=== PATIENT | male | born 1930 | race Caucasian/White ===

== ENCOUNTER 2016-11-26 17:00 | Observation (INO) ==
--- NOTE | 2016-11-26 19:09 | Internal Med History&Physical ---
Date of Encounter: 11/26/16 Time of Encounter: 19:07 Assessment and Plan (1) CVA (cerebral vascular accident) Current visit: Yes Status: Chronic Intermittent worsening confusion, left facial droop and left upper extremities and lower extremities weakness will consult PT OT and speech for supportive care Qualifiers: CVA mechanism: occlusion Precerebral and cerebral artery: posterior cerebral artery Laterality of affected vessel: unspecified Qualified Code(s) : I63.539 - Cerebral infarction due to unspecified occlusion or stenosis of unspecified posterior cerebral artery (2) Dementia Current visit: Yes Status: Chronic Qualifiers: Dementia type: Alzheimer's disease Alzheimer's disease onset: late-onset Dementia behavioral disturbance: with behavioral disturbance Qualified Code(s) : G30.1 - Alzheimer's disease with late onset; F02.81 - Dementia in other diseases classified elsewhere with behavioral disturbance Internal Medicine - H&P: HPI Admitted From: Direct Admit History of present illness: Mr. Reeder is a 86 year old male transferred back to the intermediate. Patient was seen in the ED earlier today for strokelike symptoms according to the intermediate staff. When the patient was in the ED. The patient was back to baseline. CT was negative. Patient cannot give adequate history. The family came to visit him in the ED states that there was no difference in him. He was sent back to the intermediate. He again developed the same symptoms of left-sided weakness. Decision was made to admit the patient for rehabilitation and evaluation for swallowing. Family says that they do not want any aggressive intervention other than comfort care measure Past Med Surg Social Fam HX - Past Medical History Medical history: GERD, hyperlipidemia, hypertension, other, CVA Psychiatric history: anxiety, depression - Social History Smoking Status: Former smoker Smokeless Tobacco Status: No Alcohol use: none Drug use: none Internal Medicine - H&P: Meds Atorvastatin [Lipitor] 20 mg PO HS 04/17/16 [History] Fluticasone Propionate Nasal [Flonase] 2 spray IH DAILY 04/17/16 [History] Lisinopril [Zestril] 10 mg PO DAILY 04/17/16 [History] Metoprolol [Lopressor] 100 mg PO BID 04/17/16 [History] Mirtazapine [Remeron] 15 mg PO HS 04/17/16 [History] Omeprazole [PriLOSEC] 20 mg PO DAILY 04/17/16 [History] Polyethylene Glycol 3350 [MiraLAX] 17 gm PO BID 04/17/16 [History] Sennosides [Senna] 8.6 mg PO BID 04/17/16 [History] Tamsulosin HCl [Flomax] 0.4 mg PO DAILY 04/17/16 [History] Vitamin B Complex/Vit C/Vit E [Stresstab] 1 each PO DAILY 04/17/16 [History] Iron Polysaccharide Complex [Ferrex 150] 150 mg PO DAILY 09/19/16 [History] Cholecalciferol (Vitamin D3) [Vitamin D] 50,000 unit PO QWEEK 11/26/16 [History] Loratadine [Allergy Relief] 10 mg PO DAILY 11/26/16 [History] Allergies aspirin [ASA] Allergy (Verified 09/19/16 21:10) Rash Penicillins [PCN] Allergy (Verified 09/19/16 21:10) Rash ROS unobtainable: due to mental status All Systems PM: A 10-system review of systems was performed and is negative for pertinent findings except as documented above in the HPI. - Constitutional Vitals: Temp Pulse Resp BP Pulse Ox 97.8 F 87 14 183/81 95 11/26/16 18:39 11/26/16 18:39 11/26/16 18:39 11/26/16 18:39 11/26/16 18:39 General appearance: Present: cooperative, A&O X 2, pleasant, no acute distress - Eye Eye exam: Present: PERRL, conjuntiva pink, sclera anicteric Pupils: Present: PERRL - Cardiovascular Cardiovascular exam: Present: RRR, +S1, +S2. Absent: diastolic murmur, gallop, rubs, systolic murmur - GI/Abdominal GI/Abdominal exam: Present: normal bowel sounds, soft, no peritoneal signs. Absent: distended, tenderness - Extremities Exam Extremities exam: Present: warm, radial pulses palpable and symetrical. Absent : calf tenderness, cyanotic, pedal edema - Neurological Exam Neurological exam: Present: altered, facial droop, speech deficit Additional comments: Left sided-sided weakness both upper and lower extremities - Skin Skin exam: Present: dry, intact
[2016-11-26] MEDS: Metoprolol 100 MG TABLET PO SCH (22:29)
[2016-11-27] MEDS: *HR* Enoxaparin 40 MG/0.4 ML SYRINGE SQ SCH (06:44)
[2016-11-27] MEDS: Metoprolol 100 MG TABLET PO SCH ×2 (07:54→20:02)
[2016-11-27] MEDS ORDERED: *HR* Labetalol 20 MG/4 ML SYRINGE IVP ONE (12:19)
[2016-11-27] MEDS: D5% in 0.9% NACL 1,000 ML IVC SCH ×2 (14:37→23:56)
[2016-11-27] MEDS ORDERED: CloNIDine Patch 0.1 MG PATCH (WEEKLY) TD SCH (19:00)
[2016-11-27] MEDS: *HR* Labetalol 20 MG/4 ML SYRINGE IVP PRN ×2 (20:02→23:57)
[2016-11-28] MEDS: *HR* Labetalol 20 MG/4 ML SYRINGE IVP PRN ×4 (04:37→20:43)
[2016-11-28] MEDS: *HR* Enoxaparin 40 MG/0.4 ML SYRINGE SQ SCH (04:37)
[2016-11-28] MEDS: Metoprolol 100 MG TABLET PO SCH ×2 (08:21→20:41)
[2016-11-28] MEDS: D5% in 0.9% NACL 1,000 ML IVC SCH ×2 (10:25→21:09)
--- NOTE | 2016-11-28 12:17 | Internal Med Progress Note ---
Date of Encounter: 11/28/16 Time of Encounter: 12:15 - Assessment and plan (1) CVA (cerebral vascular accident) Current Visit: Yes Status: Chronic Assessment and plan: Failed swallowing evaluation. Family requesting consultation for PEG tube placement this Wednesday. Patient getting IV fluids at this time. Oral meds being held. Qualifiers: CVA mechanism: occlusion Precerebral and cerebral artery: posterior cerebral artery Laterality of affected vessel: unspecified Qualified Code(s) : I63.539 - Cerebral infarction due to unspecified occlusion or stenosis of unspecified posterior cerebral artery (2) Dementia Current Visit: Yes Status: Chronic Qualifiers: Dementia type: Alzheimer's disease Alzheimer's disease onset: late-onset Dementia behavioral disturbance: with behavioral disturbance Qualified Code(s) : G30.1 - Alzheimer's disease with late onset; F02.81 - Dementia in other diseases classified elsewhere with behavioral disturbance (3) Hypertension Current Visit: Yes Status: Chronic Assessment and plan: Been difficult to control since oral antihypertensive medications being withheld. Catapres patch started. Labetalol IV when necessary given. Qualifiers: Hypertension type: unspecified secondary hypertension Qualified Code(s): I15.9 - Secondary hypertension, unspecified; I15 - Secondary hypertension - Time Spent With Patient 25 - 35 minutes - Subjective Interval history: Patient sleeps a lot. Cannot give adequate history. Patient failed swallowing evaluation. - Constitutional Vitals: Temp Pulse Resp BP Pulse Ox 97.9 F 64 16 174/80 97 11/28/16 10:40 11/28/16 10:40 11/28/16 10:40 11/28/16 10:40 11/28/16 10:40 General appearance: Present: disheveled, no acute distress - Respiratory Respiratory exam: Present: CTAB. Absent: accessory muscle use, rales, rhonchi, wheezes - Cardiovascular Cardiovascular exam: Present: RRR, +S1, +S2. Absent: diastolic murmur, gallop, rubs, systolic murmur - GI/Abdominal GI/Abdominal exam: Present: normal bowel sounds, soft, no peritoneal signs. Absent: distended, tenderness - Extremities Exam Extremities exam: Present: warm, radial pulses palpable and symetrical. Absent : calf tenderness, cyanotic, pedal edema - Neurological Exam Neurological exam: Present: altered, facial droop Consult Discharge Plan - Plan Referrals: Sarai Gonzalez MD [Primary Care Provider] -
[2016-11-28] MEDS ORDERED: *HR* Labetalol 20 MG/4 ML SYRINGE IVP ONE (18:12)
[2016-11-28] MEDS ORDERED: D5% in 0.45% NACL 1,000 ML IVC SCH (21:00)
[2016-11-28] MEDS ORDERED: D5% in 0.45% NACL 1,000 ML IVC ONE (21:06)
[2016-11-29] MEDS: *HR* Labetalol 20 MG/4 ML SYRINGE IVP PRN ×4 (00:13→20:32)
[2016-11-29] MEDS: *HR* Enoxaparin 40 MG/0.4 ML SYRINGE SQ SCH (05:32)
--- NOTE | 2016-11-29 12:36 | Internal Med Progress Note ---
Date of Encounter: 11/29/16 Time of Encounter: 12:34 - Assessment and plan (1) CVA (cerebral vascular accident) Current Visit: Yes Status: Chronic Assessment and plan: Patient has CVA looks like parades that B has left-sided facial drooping and difficulty with movement Qualifiers: CVA mechanism: occlusion Precerebral and cerebral artery: posterior cerebral artery Laterality of affected vessel: unspecified Qualified Code(s) : I63.539 - Cerebral infarction due to unspecified occlusion or stenosis of unspecified posterior cerebral artery (2) Dementia Current Visit: Yes Status: Chronic Qualifiers: Dementia type: Alzheimer's disease Alzheimer's disease onset: late-onset Dementia behavioral disturbance: with behavioral disturbance Qualified Code(s) : G30.1 - Alzheimer's disease with late onset; F02.81 - Dementia in other diseases classified elsewhere with behavioral disturbance - Time Spent With Patient less than 15 minutes - Subjective Interval history: Mr. Altamirano very difficult to understand but he shook his head no to the question D have any pain or problems. From what I been told since his admission that he set up for possible PEG tube tomorrow. He does have some left -sided facial droopiness. And cannot manipulate his tone properly. We very unsafe to feed him. He does have an IV for fluids - Constitutional Vitals: Temp Pulse Resp BP Pulse Ox 97.6 F 61 16 175/63 97 11/29/16 11:30 11/29/16 11:30 11/29/16 11:30 11/29/16 07:00 11/29/16 07:00 General appearance: Present: disheveled, no acute distress - Head Head exam: Present: atraumatic, normal inspection, normocephalic - Respiratory Respiratory exam: Present: CTAB. Absent: accessory muscle use, rales, rhonchi, wheezes - Cardiovascular Cardiovascular exam: Present: RRR, +S1, +S2. Absent: diastolic murmur, gallop, rubs, systolic murmur - GI/Abdominal GI/Abdominal exam: Present: normal bowel sounds, soft, no peritoneal signs. Absent: distended, tenderness Internal Medicine: Result - Labs Labs: Thyroid labs from the area Consult Discharge Plan - Plan Referrals: Sarai Gonzalez MD [Primary Care Provider] -
[2016-11-29] MEDS: Metoprolol 100 MG TABLET PO SCH ×2 (15:43→20:49)
[2016-11-29] MEDS: D5% in 0.9% NACL 1,000 ML IVC SCH (17:44)
[2016-11-30] MEDS: D5% in 0.9% NACL 1,000 ML IVC SCH (03:58)
[2016-11-30] MEDS: *HR* Enoxaparin 40 MG/0.4 ML SYRINGE SQ SCH (04:12)
[2016-11-30] MEDS: *HR* Labetalol 20 MG/4 ML SYRINGE IVP PRN ×2 (04:12→07:55)
[2016-11-30 05:59] LABS: Basophils % 0.7 %; Eosinophils # 0.1 K/mcL (0.0-0.6); Eosinophils % 2.1 %; Hematocrit 35.2 % (37.5-50.1); Hemoglobin 10.6 g/dL (12.9-16.9); Immature Granulocytes % 1.9 % (0-4); Lymphocytes # 0.6 K/mcL (0.6-4.6); Lymphocytes % 13.3 %; Mean Corpuscular HGB Conc 30.1 g/dL (31.6-35.5); Mean Corpuscular Hemoglobin 26.2 pg (28.0-33.3); Mean Corpuscular Volume 86.9 fL (83.0-100.0); Monocytes # 0.3 K/mcL (0.0-1.3); Monocytes % 5.8 %; Neutrophils # 3.3 K/mcL (1.6-8.9); Platelet Count 173 K/mcL (140-400); Red Blood Count 4.05 M/mcL (4.19-5.50); Red Cell Distribution Width 18.6 % (11.5-14.5); Segmented Neutrophils % 76.2 %
[2016-11-30 06:08] LABS: BUN/Creatinine Ratio 9 (6-26); Blood Urea Nitrogen 7 mg/dL (8-26); Carbon Dioxide 20 mEq/L (19-29); Chloride 116 mEq/L (98-109); Glucose 111 mg/dL (70-99); Osmolality,Calculated 297 (280-300); Potassium 3.1 mEq/L (3.5-4.5); Sodium 144 mEq/L (136-145); eGFR For African Americans > 60 (> 60); eGFR For Non-African Americans > 60 (> 60)
--- NOTE | 2016-11-30 11:49 | Internal Med Progress Note ---
Date of Encounter: 11/30/16 Time of Encounter: 11:47 - Assessment and plan (1) CVA (cerebral vascular accident) Current Visit: Yes Status: Chronic Assessment and plan: Patient is somewhat improved. Qualifiers: CVA mechanism: occlusion Precerebral and cerebral artery: posterior cerebral artery Laterality of affected vessel: unspecified Qualified Code(s) : I63.539 - Cerebral infarction due to unspecified occlusion or stenosis of unspecified posterior cerebral artery (2) Dementia Current Visit: Yes Status: Chronic Assessment and plan: This was noted from the ECF Qualifiers: Dementia type: Alzheimer's disease Alzheimer's disease onset: late-onset Dementia behavioral disturbance: with behavioral disturbance Qualified Code(s) : G30.1 - Alzheimer's disease with late onset; F02.81 - Dementia in other diseases classified elsewhere with behavioral disturbance - Time Spent With Patient less than 15 minutes - Subjective Interval history: Page therapist felt that the patient's tongue movement was improved and swallowing also. She tried some liquids and some applesauce with success. Therefore he will get a modified barium swallow today we will see about advancing his diet. - Constitutional Vitals: Temp Pulse Resp BP Pulse Ox 97.8 F 64 16 185/82 97 11/30/16 11:24 11/30/16 11:24 11/30/16 11:24 11/30/16 11:24 11/30/16 11:24 General appearance: Present: disheveled, no acute distress - Head Head exam: Present: atraumatic, normal inspection, normocephalic - Neck Neck exam general surgery: Present: supple, trachea midline. Absent: lymphadenopathy - Respiratory Respiratory exam: Present: CTAB. Absent: accessory muscle use, rales, rhonchi, wheezes - Cardiovascular Cardiovascular exam: Present: RRR, +S1, +S2. Absent: diastolic murmur, gallop, rubs, systolic murmur Internal Medicine: Result - Labs CBC & Chem 7: 11/30/16 05:10 11/30/16 05:10 Labs: Short CBC 11/30/16 Range/Units 05:10 WBC 4.3 (4.3-11.1) K/mcL Hgb 10.6 L (12.9-16.9) g/dL Hct 35.2 L (37.5-50.1) % Plt Count 173 (140-400) K/mcL Neutrophils # 3.3 (1.6-8.9) K/mcL [facility] 11/30/16 05:10 Sodium 144 Potassium 3.1 L Chloride 116 H Carbon Dioxide 20 BUN 7 L Creatinine 0.79 Glucose 111 H Calcium 8.0 L Potassium was low so I started IV fluid with potassium in it. We will follow Consult Discharge Plan - Plan Referrals: Sarai Gonzalez MD [Primary Care Provider] -
[2016-11-30] MEDS: Metoprolol 100 MG TABLET PO SCH ×2 (14:02→19:50)
[2016-11-30] MEDS ORDERED: 0.9 % Sodium Chloride w KCl 20 MEQ/1,000 ML MLS IVC ONE (14:30)
[2016-11-30] MEDS: *HR* Labetalol 100 MG/20 ML MDV IVP PRN ×2 (18:13→22:58)
[2016-12-01] MEDS: *HR* Labetalol 100 MG/20 ML MDV IVP PRN ×4 (03:24→20:52)
[2016-12-01] MEDS: *HR* Enoxaparin 40 MG/0.4 ML SYRINGE SQ SCH (03:30)
--- NOTE | 2016-12-01 11:46 | Internal Med Progress Note ---
Date of Encounter: 12/01/16 Time of Encounter: 11:42 - Assessment and plan (1) CVA (cerebral vascular accident) Current Visit: Yes Status: Chronic Assessment and plan: Patient is unable to safely eat or take thin liquids and had a PEG tube today. The goal will be to send him back to the F. Qualifiers: CVA mechanism: occlusion Precerebral and cerebral artery: posterior cerebral artery Laterality of affected vessel: unspecified Qualified Code(s) : I63.539 - Cerebral infarction due to unspecified occlusion or stenosis of unspecified posterior cerebral artery (2) Dementia Current Visit: Yes Status: Chronic Assessment and plan: Noted by history Qualifiers: Dementia type: Alzheimer's disease Alzheimer's disease onset: late-onset Dementia behavioral disturbance: with behavioral disturbance Qualified Code(s) : G30.1 - Alzheimer's disease with late onset; F02.81 - Dementia in other diseases classified elsewhere with behavioral disturbance - Time Spent With Patient less than 15 minutes - Subjective Interval history: She failed the modified barium swallow yesterday. So this morning he successfully had radha Benton's on the case and made recommendations. PEG tube placement - Constitutional Vitals: Temp Pulse Resp BP Pulse Ox 98.3 F 67 18 180/75 99 12/01/16 07:00 12/01/16 07:00 12/01/16 07:00 12/01/16 07:00 12/01/16 07:00 General appearance: Present: disheveled, no acute distress - Head Head exam: Present: atraumatic, normal inspection, normocephalic - Neck Neck exam general surgery: Present: supple, trachea midline. Absent: lymphadenopathy - Respiratory Respiratory exam: Present: CTAB. Absent: accessory muscle use, rales, rhonchi, wheezes - Cardiovascular Cardiovascular exam: Present: RRR, +S1, +S2. Absent: diastolic murmur, gallop, rubs, systolic murmur Internal Medicine: Result - Labs CBC & Chem 7: 11/30/16 05:10 11/30/16 05:10 Labs: Alexus of the PEG tube with regard give KCl with the PEG tube to correct the potassium level Consult Discharge Plan - Plan Referrals: Sarai Gonzalez MD [Primary Care Provider] -
[2016-12-01] MEDS: Metoprolol 100 MG TABLET PO SCH ×2 (16:27→20:52)
[2016-12-01] MEDS: Potassium Citrate 10 MEQ TABLET.ER PO SCH ×3 (16:28→18:35)
[2016-12-02] MEDS: *HR* Labetalol 100 MG/20 ML MDV IVP PRN ×2 (05:28→07:53)
[2016-12-02] MEDS: *HR* Enoxaparin 40 MG/0.4 ML SYRINGE SQ SCH (05:30)
[2016-12-02 05:40] LABS: BUN/Creatinine Ratio 13 (6-26); Blood Urea Nitrogen 11 mg/dL (8-26); Calcium 8.4 mg/dL (8.6-10.8); Carbon Dioxide 21 mEq/L (19-29); Chloride 116 mEq/L (98-109); Glucose 100 mg/dL (70-99); Osmolality,Calculated 295 (280-300); Potassium 4.2 mEq/L (3.5-4.5); Sodium 143 mEq/L (136-145); eGFR For African Americans > 60 (> 60); eGFR For Non-African Americans > 60 (> 60)
[2016-12-02] MEDS: Metoprolol 100 MG TABLET PO SCH (09:17)
[2016-12-02] MEDS: Potassium Citrate 10 MEQ TABLET.ER PO SCH (09:19)
--- NOTE | 2016-12-02 13:23 | Internal Med Progress Note ---
Date of Encounter: 12/02/16 Time of Encounter: 13:22 - Assessment and plan (1) CVA (cerebral vascular accident) Current Visit: Yes Status: Chronic Assessment and plan: Patient has left facial droop and now has a PEG tube. [facility] Qualifiers: CVA mechanism: occlusion Precerebral and cerebral artery: posterior cerebral artery Laterality of affected vessel: unspecified Qualified Code(s) : I63.539 - Cerebral infarction due to unspecified occlusion or stenosis of unspecified posterior cerebral artery (2) Dementia Current Visit: Yes Status: Chronic Assessment and plan: By history Qualifiers: Dementia type: Alzheimer's disease Alzheimer's disease onset: late-onset Dementia behavioral disturbance: with behavioral disturbance Qualified Code(s) : G30.1 - Alzheimer's disease with late onset; F02.81 - Dementia in other diseases classified elsewhere with behavioral disturbance - Time Spent With Patient less than 15 minutes - Subjective Interval history: Awaiting chest x-ray if it is clear patient will back to ECF. He is tolerating the tube feedings okay - Constitutional Vitals: Temp Pulse Resp BP Pulse Ox 97.8 F 64 16 197/86 97 12/02/16 11:00 12/02/16 11:00 12/02/16 11:00 12/02/16 11:00 12/02/16 11:00 General appearance: Present: disheveled, no acute distress - Head Head exam: Present: atraumatic, normal inspection, normocephalic - Respiratory Respiratory exam: Present: CTAB. Absent: accessory muscle use, rales, rhonchi, wheezes - Cardiovascular Cardiovascular exam: Present: RRR, +S1, +S2. Absent: diastolic murmur, gallop, rubs, systolic murmur - GI/Abdominal GI/Abdominal exam: Present: normal bowel sounds, soft, no peritoneal signs. Absent: distended, tenderness Internal Medicine: Result - Labs CBC & Chem 7: 11/30/16 05:10 12/02/16 05:15 Labs: BMP 12/02/16 05:15 Sodium 143 Potassium 4.2 D Chloride 116 H Carbon Dioxide 21 BUN 11 Creatinine 0.83 Glucose 100 H Calcium 8.4 L I did note that we have successfully increased his potassium to normal limits - Impressions Impressions Videofluoroscopic Swallow 11/30/16 11:46 IMPRESSION: Penetration was identified with several consistencies as above. I am also concerned there may be a small amount of aspiration seen on the 5th series of images, image #16. Please see separate speech pathology report for full discussion of findings and recommendations. D/ / Rafael Cardona MD / Rafael Cardona MD Interpreting Provider: Rafael Cardona MD Consult Discharge Plan - Plan Referrals: Sarai Gonzalez MD [Primary Care Provider] -
[2016-12-02 13:44] VITALS: BP 201/84
--- NOTE | 2016-12-02 14:44 | Discharge Summary ---
Date of Encounter: 12/02/16 Time of Encounter: 14:44 - Discharge Diagnosis (1) CVA (cerebral vascular accident) Priority: Primary Status: Chronic Comments: Patient has CVA had dysphagia and Doppler PEG tube. Qualifiers: CVA mechanism: occlusion Precerebral and cerebral artery: posterior cerebral artery Laterality of affected vessel: unspecified Qualified Code(s) : I63.539 - Cerebral infarction due to unspecified occlusion or stenosis of unspecified posterior cerebral artery (2) Dementia Priority: Secondary Status: Chronic Comments: This was noted. Qualifiers: Dementia type: Alzheimer's disease Alzheimer's disease onset: late-onset Dementia behavioral disturbance: with behavioral disturbance Qualified Code(s) : G30.1 - Alzheimer's disease with late onset; F02.81 - Dementia in other diseases classified elsewhere with behavioral disturbance - Discharge Medications Home Medications: Atorvastatin [Lipitor] 40 mg PO HS 04/17/16 [History] Fluticasone Propionate Nasal [Flonase] 2 spray IH DAILY 04/17/16 [History] Lisinopril [Zestril] 10 mg PO DAILY 04/17/16 [History] Metoprolol [Lopressor] 100 mg PO BID 04/17/16 [History] Mirtazapine [Remeron] 7.5 mg PO HS 04/17/16 [History] Omeprazole [PriLOSEC] 20 mg PO DAILY 04/17/16 [History] Polyethylene Glycol 3350 [MiraLAX] 17 gm PO BID 04/17/16 [History] Sennosides [Senna] 8.6 mg PO BID 04/17/16 [History] Tamsulosin HCl [Flomax] 0.4 mg PO DAILY 04/17/16 [History] Vitamin B Complex/Vit C/Vit E [Stresstab] 1 each PO DAILY 04/17/16 [History] Cholecalciferol (Vitamin D3) [Vitamin D] 50,000 unit PO QWEEK 11/26/16 [History] Loratadine [Allergy Relief] 10 mg PO DAILY 11/26/16 [History] Carboxymethylcellulose Sodium [Refresh Tears] 1 drop BOTH EYES BID PRN 11/27/16 [History] Erythromycin OPTH Oint 1 appl RIGHT EYE BID 11/27/16 [History] Ferrex 150 Plus Capsule 1 cap PO DAILY 11/27/16 [History] Allergies/Adverse Reactions: Allergies aspirin [ASA] Allergy (Verified 09/19/16 21:10) Rash Penicillins [PCN] Allergy (Verified 09/19/16 21:10) Rash Date of admission: 11/26/16 18:35 Primary care physician: Sarai Gonzalez Consults: 11/26/16 19:15 Consult to Speech Therapy [CONS] Routine Comment: Evaluate, develop and implement POC Reason for Consult: swallowig Call Completed: Yes 11/26/16 19:16 Consult to Nutrition [CONS] Routine Comment: Consulting Provider: NUTRITION Reason for Dietary Consult: Supplemental Nutrition Consult to Paramedical Aide [CONS] Routine Reason for SW Consult: d/c planning Discharging clinician: Jerald Cleary Anticipated date of discharge: 12/02/16 - Patient Status Disposition: Transfer SNF Condition: Fair Functional capacity at discharge: bed bound Overall status at discharge: patient is progressing back to baseline - Discharge Instructions Follow Up With: Sarai Gonzalez MD [Primary Care Provider] - Interval History: Patient was admitted from the emergency room for new CVA. Hospital course: Mr. Reeder is a 86 year old male Patient was worked up by our speech therapy department had a modified barium that showed high risk for aspiration. PEG tube subsequently was placed and is currently in use. - Time Spent with Patient Total time spent providing and/or coordinating discharge services: Greater than 30 minutes - Constitutional Vitals: Temp Pulse Resp BP Pulse Ox 97.8 F 65 17 201/84 97 12/02/16 11:00 12/02/16 13:44 12/02/16 13:44 12/02/16 13:44 12/02/16 11:00 General appearance: Present: disheveled, no acute distress - Head Head exam: Present: atraumatic, normal inspection, normocephalic - Neck Neck exam general surgery: Present: supple, trachea midline. Absent: lymphadenopathy - Respiratory Respiratory exam: Present: CTAB. Absent: accessory muscle use, rales, rhonchi, wheezes - Cardiovascular Cardiovascular exam: Present: RRR, +S1, +S2. Absent: diastolic murmur, gallop, rubs, systolic murmur - Neurological Exam Neurological exam: Present: CN II-XII intact, oriented X3, no focal deficits. Absent: pronater drift, facial droop (Ration is left-sided facial droop.), speech deficit
--- NOTE | 2016-12-02 14:53 | Physician Discharge Referral ---
ExtendedCare Referral Info Transfer To: ECF Provider in Charge after Transfer: PCP Institutional Level of Care: Skilled - Diagnosis (1) CVA (cerebral vascular accident) Priority: Primary Status: Chronic (2) Dementia Priority: Secondary Status: Chronic Prognosis: Fair Aware of Diagnosis: Patient, Family Aware of Prognosis: Family - Transfer Medications Home Medications: Atorvastatin [Lipitor] 40 mg PO HS 04/17/16 [History] Fluticasone Propionate Nasal [Flonase] 2 spray IH DAILY 04/17/16 [History] Lisinopril [Zestril] 10 mg PO DAILY 04/17/16 [History] Metoprolol [Lopressor] 100 mg PO BID 04/17/16 [History] Mirtazapine [Remeron] 7.5 mg PO HS 04/17/16 [History] Omeprazole [PriLOSEC] 20 mg PO DAILY 04/17/16 [History] Polyethylene Glycol 3350 [MiraLAX] 17 gm PO BID 04/17/16 [History] Sennosides [Senna] 8.6 mg PO BID 04/17/16 [History] Tamsulosin HCl [Flomax] 0.4 mg PO DAILY 04/17/16 [History] Vitamin B Complex/Vit C/Vit E [Stresstab] 1 each PO DAILY 04/17/16 [History] Cholecalciferol (Vitamin D3) [Vitamin D] 50,000 unit PO QWEEK 11/26/16 [History] Loratadine [Allergy Relief] 10 mg PO DAILY 11/26/16 [History] Carboxymethylcellulose Sodium [Refresh Tears] 1 drop BOTH EYES BID PRN 11/27/16 [History] Erythromycin OPTH Oint 1 appl RIGHT EYE BID 11/27/16 [History] Ferrex 150 Plus Capsule 1 cap PO DAILY 11/27/16 [History] Allergies/Adverse Reactions: Allergies aspirin [ASA] Allergy (Verified 09/19/16 21:10) Rash Penicillins [PCN] Allergy (Verified 09/19/16 21:10) Rash - Respiratory Orders Smoking Cessation: Smoking cessation has been advised. For more information, call the [place] Tobacco Quit Line at 6-686-IWQB-NOW. - Advance Directives Living Will: Yes Power of Community Organization Director: Yes Code Status: DNR-Arrest CERTIFICATION: I certify that the transfer of the above named patient to an Extended Care Facility is necessary for the continuing treatment of the diagnosis listed. The above information is true and accurate reflection of patient's current condition. Confidential - Redisclosure prohibited without a patient's written consent.
== END 2016-12-02 17:40 ==
LOC: INPGRE
PROVIDERS: ADMIT Internal Medicine; ATTEND Internal Medicine

== ENCOUNTER 2017-08-13 04:26 | Inpatient (IN) ==
--- NOTE | 2017-08-13 04:52 | Emergency Department Note ---
Disposition Clinical Impression: Pneumonia Disposition: Admitted As Inpatient Condition: Fair Referrals: Sarai Gonzalez MD [Primary Care Provider] - Forms: ED Satisfaction Letter, Work/School Release General Adult HPI - General Chief complaint: ED General Medical Stated complaint: Low O2 Sat Time Seen by Provider: 08/13/17 04:52 Source: EMS Mode of arrival: EMS Limitations: physical limitation, age, other - History of Present Illness HPI Narrative: 87-year-old white male [facility] Department [facility]. He is able to voice no complaints or give a history. According to EMS nursing staff outpatient with a decreased oxygen saturation and sent him to the emergency department to be evaluated. The patient is a DO NOT RESUSCITATE and comfort care measure only patient. He is short of breath breathing easily 20 times a minute and has an oxygen saturation of 90% on 15 L of nasal cannulated oxygen. Pain Scale: 0 - Related Data Home Medications Medication Instructions Recorded Confirmed Polyethylene Glycol 3350 [MiraLAX] 17 gm PO BID 04/17/16 08/13/17 Clopidogrel [Plavix] 75 mg GTUBE HS 07/12/17 08/13/17 Escitalopram [Lexapro] 5 mg GTUBE DAILY 07/12/17 08/13/17 Furosemide [Lasix] 40 mg GTUBE BID 07/12/17 08/13/17 HYDROcodone/Acet 5/325 mg [[place] 1 tab GTUBE Q6H 07/12/17 08/13/17 5-325 mg] Magnesium Hydroxide [Milk of 30 ml GTUBE DAILY PRN 07/12/17 08/13/17 Magnesia] Menthol [Biofreeze] 1 applic TP TID PRN 07/12/17 08/13/17 Metoprolol [Lopressor] 100 mg GTUBE BID 07/12/17 08/13/17 Mirtazapine [Remeron] 30 mg GTUBE DAILY 07/12/17 08/13/17 Pantoprazole Sodium [Protonix] 40 mg GTUBE DAILY 07/12/17 08/13/17 Potassium Chloride Elixir 10 meq GTUBE DAILY 07/12/17 08/13/17 [Potassium Chloride] Ondansetron HCl [Zofran] 4 mg PO Q8H PRN 08/13/17 08/13/17 Allergies Allergy/AdvReac Type Severity Reaction Status Date / Time aspirin [ASA] Allergy Rash Verified 07/12/17 01:20 Penicillins [PCN] Allergy Rash Verified 07/12/17 01:20 Limitations: ROS unobtainable due to patients medical condition Past Medical History - Past Medical History Medical history: Reports: cancer, CVA, dementia, GERD, hyperlipidemia, hypertension, kidney stones, other Surgical history: Reports: cataract Psychiatric history: Reports: anxiety, depression - Social History Smoking Status: Former smoker Smokeless Tobacco Status: No Alcohol use: Reports: none Drug use: Reports: none Physical Exam - General Limitations: physical limitation, age, other General appearance: in no apparent distress, cachectic, other - Head Head exam: atraumatic, normocephalic, normal inspection - Eye Eye exam: Present: normal appearance, PERRL, EOMI - ENT ENT exam: normal exam, normal oropharynx, mucous membranes moist - Neck Neck exam: Present: normal inspection, full ROM, trachea midline - Chest Chest inspection: Present: normal inspection, symmetric chest wall rise - Respiratory Respiratory exam: Present: accessory muscle use, other (Scattered rhonchi throughout with coarse breath sounds). Absent: respiratory distress, wheezes - Cardiovascular Cardiovascular exam: Present: regular rate, normal rhythm, normal heart sounds - Abdominal Exam Abdominal exam: Present: soft, Non-Tender. Absent: tenderness, distention, guarding, rebound, rigidity - Extremities Exam Extremities exam: Present: other (Lower extremity contracture). Absent: tenderness, pedal edema - Back Exam Back exam: Present: normal inspection, full ROM. Absent: tenderness - Neurological Exam Neurological exam: Present: CN II-XII intact. Absent: motor sensory deficit - Psychiatric Psychiatric exam: Absent: agitated, anxious - Skin Skin exam: Present: warm, dry, intact, normal color Course Course Narrative: The patient remained short of breath throughout his emergency department stay and had little improvement following his medications. His family was at the bedside and the DO NOT RESUSCITATE and comfort care orders are confirmed. Blood cultures were obtained and a hospital-acquired pneumonia protocol was started prior to his admission to the hospital. Vital Signs Temperature 99.9 F H 08/13/17 04:33 Pulse Rate 124 08/13/17 04:33 Respiratory Rate 32 08/13/17 04:33 Blood Pressure 101/55 08/13/17 04:33 O2 Sat by Pulse Oximetry 91 08/13/17 04:33 Temperature 99.9 F H 08/13/17 04:33 Pulse Rate 124 08/13/17 04:33 Respiratory Rate 32 08/13/17 05:29 Blood Pressure 101/55 08/13/17 05:29 O2 Sat by Pulse Oximetry 91 08/13/17 05:29 Oxygen Delivery Oxygen Delivery Non Rebreather Mask Medical Decision Making - Radiology Data Radiology results reviewed: Yes I reviewed the patient's radiology results. One view chest: IMPRESSION: Bibasilar atelectasis, pneumonia and/or progressive scarring. D/ / Davi Moura MD / Davi Moura MD
[2017-08-13] MEDS ORDERED: Ondansetron 4 MG/2 ML VIAL IVP ONE (04:54)
[2017-08-13] MEDS ORDERED: *HR* Morphine 2 MG/ML SYRINGE IVP ONE (04:54)
[2017-08-13] MEDS ORDERED: Ipratropium/Albuterol Neb 3 ML IH ONE (05:07)
[2017-08-13] MEDS ORDERED: methylPREDNISolone 125 MG/2 ML VIAL IVP ONE (05:07)
[2017-08-13] MEDS ORDERED: 0.9 % Sodium Chloride 1,000 ML IVC ONE (05:55)
[2017-08-13] MEDS ORDERED: Aztreonam 1,000 MG in Water for inj. (sterile) 10 ML IVP ONE (06:00)
[2017-08-13] MEDS ORDERED: Aztreonam 2,000 MG in D5% in Water (Mini-Bag+) 100 ML IVPB SCH (06:00)
[2017-08-13 06:25] LABS: Basophils # 0.1 K/mcL (0.0-0.2); Basophils % 0.5 %; Eosinophils % 0.1 %; Hematocrit 43.6 % (37.5-50.1); Hemoglobin 11.9 g/dL (12.9-16.9); Immature Granulocytes % 2.1 % (0-4); Lymphocytes # 0.6 K/mcL (0.6-4.6); Lymphocytes % 4.8 %; Mean Corpuscular HGB Conc 27.3 g/dL (31.6-35.5); Mean Corpuscular Hemoglobin 28.7 pg (28.0-33.3); Mean Corpuscular Volume 105.1 fL (83.0-100.0); Mean Platelet Volume 14.2 fL (9.4-12.4); Monocytes # 0.5 K/mcL (0.0-1.3); Monocytes % 4.2 %; Neutrophils # 10.1 K/mcL (1.6-8.9); Nucleated Red Blood Cells 0.6 /100 WBC (0); Platelet Count 210 K/mcL (140-400); Red Blood Count 4.15 M/mcL (4.19-5.50); Red Cell Distribution Width 21.6 % (11.5-14.5); Segmented Neutrophils % 88.3 %
[2017-08-13 07:19] LABS: Albumin/Globulin Ratio 0.6 (1.1-2.2); Bilirubin,Total 0.6 mg/dL (0.2-1.2); Calcium 9.7 mg/dL (8.6-10.8); Globulin 4.7 g/dL (2.4-3.5); Potassium 4.9 mEq/L (3.5-4.5); Total Protein 7.7 g/dL (6.0-8.3)
[2017-08-13] MEDS ORDERED: 0.9 % Sodium Chloride 1,000 ML IVC SCH (07:20)
[2017-08-13] MEDS ORDERED: NON-FORMULARY MEDICATION 1 EACH EACH (Magnesium Hydroxide 30 ML) GTUBE PRN (07:20)
[2017-08-13] MEDS ORDERED: MENTHOL TP PRN (07:20)
[2017-08-13] MEDS ORDERED: *HR* Morphine 2 MG/ML SYRINGE IVP PRN (07:20)
[2017-08-13] MEDS ORDERED: Naloxone 0.4 MG/ML INJ IVP PRN (07:20)
[2017-08-13] MEDS ORDERED: Acetaminophen 325 MG TABLET PO PRN ×2 (07:20→12:07)
[2017-08-13] MEDS ORDERED: *HR* Enoxaparin 30 MG/0.3 ML SYRINGE SQ SCH (07:20)
[2017-08-13] MEDS ORDERED: Ondansetron 4 MG/2 ML VIAL IVP PRN (07:20)
[2017-08-13] MEDS ORDERED: MOM Conc 10 ML UD.LIQ GTUBE PRN (07:58)
[2017-08-13] MEDS ORDERED: D5% in Water 1,000 ML IVC SCH (08:30)
[2017-08-13] MEDS ORDERED: Potassium Chloride Elixir 20 MEQ/15 ML UDC GTUBE SCH (09:00)
[2017-08-13] MEDS ORDERED: Levofloxacin 750 MG/150 ML 750 MG/150 ML BAG IVPB SCH (09:00)
[2017-08-13] MEDS ORDERED: Levofloxacin 750 MG/150 ML 750 MG/150 ML BAG IVPB ONE (09:00)
[2017-08-13] MEDS ORDERED: Mirtazapine 15 MG TABLET GTUBE SCH (09:00)
[2017-08-13 10:40] VITALS: BP 89/65
[2017-08-13] MEDS ORDERED: Aztreonam 2,000 MG in Water for inj. (sterile) 20 ML IVP SCH (12:00)
[2017-08-13] MEDS: Furosemide 40 MG TABLET PO SCH ×2 (12:21→17:44)
[2017-08-13] MEDS: Metoprolol 100 MG TABLET GTUBE SCH ×2 (12:22→20:39)
[2017-08-13] MEDS: Aztreonam 1,000 MG in Water for inj. (sterile) 10 ML IVP SCH ×3 (12:25→23:53)
--- NOTE | 2017-08-13 13:16 | Internal Med History&Physical ---
Date of Encounter: 08/13/17 Time of Encounter: 13:14 Assessment and Plan (1) Healthcare-associated pneumonia Current visit: Yes Status: Acute Questionable pneumonia on the chest x-ray may be simply scarring and atelectasis (2) Pneumonia Current visit: Yes Status: Acute He had questionable x-ray were possible pneumonia patient does have a fever and a bit of like. Qualifiers: Pneumonia type: due to unspecified organism Laterality: bilateral Lung location: lower lobe of lung Qualified Code(s): J18.9 - Pneumonia, unspecified organism (3) Dementia Current visit: No Status: Chronic Regional responses are not completely sure his mental status Qualifiers: Dementia type: Alzheimer's disease Alzheimer's disease onset: late-onset Dementia behavioral disturbance: with behavioral disturbance Qualified Code(s) : G30.1 - Alzheimer's disease with late onset; F02.81 - Dementia in other diseases classified elsewhere with behavioral disturbance (4) CVA (cerebral vascular accident) Current visit: No Status: Chronic By history again patient is currently unresponsive Qualifiers: CVA mechanism: occlusion Precerebral and cerebral artery: posterior cerebral artery Laterality of affected vessel: unspecified Qualified Code(s) : I63.539 - Cerebral infarction due to unspecified occlusion or stenosis of unspecified posterior cerebral artery (5) Hypertension Current visit: No Status: Chronic Currently hypotensive Qualifiers: Hypertension type: unspecified secondary hypertension Qualified Code(s): I15.9 - Secondary hypertension, unspecified; I15 - Secondary hypertension Internal Medicine - H&P: HPI Chief complaint: Mr. 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 Reeder is a 87 year old male Past Med Surg Social Fam HX - Past Medical History Medical history: cancer, CVA, dementia, GERD, hyperlipidemia, hypertension, kidney stones, other Psychiatric history: anxiety, depression - Past Surgical History Surgical History: cataract - Social History Smoking Status: Former smoker Smokeless Tobacco Status: No Alcohol use: none Drug use: none - Family History Mother Adopted: No Family Member Ethnicity: Unknown Living Status: Hx Family Cardiac Disorders: Yes (brother, neices, nephews) Hx Family Respiratory Disorders: Yes Hx Family Cancer: Yes Hx Family GI Disorders: Yes Hx Family Endocrine Disorder: Yes Hx Family Neuromuscular Disorders: No Hx Family Neurologic Disorders: No Hx Family HEENT Disorders: No Hx Family Autoimmune Disorders: No Internal Medicine - H&P: Meds Polyethylene Glycol 3350 [MiraLAX] 17 gm PO BID 04/17/16 [History] Clopidogrel [Plavix] 75 mg GTUBE HS 07/12/17 [History] Escitalopram [Lexapro] 5 mg GTUBE DAILY 07/12/17 [History] Furosemide [Lasix] 40 mg GTUBE BID 07/12/17 [History] HYDROcodone/Acet 5/325 mg [[place] 5-325 mg] 1 tab GTUBE Q6H 07/12/17 [History] Magnesium Hydroxide [Milk of Magnesia] 30 ml GTUBE DAILY PRN 07/12/17 [History] Menthol [Biofreeze] 1 applic TP TID PRN 07/12/17 [History] Metoprolol [Lopressor] 100 mg GTUBE BID 07/12/17 [History] Mirtazapine [Remeron] 30 mg GTUBE DAILY 07/12/17 [History] Pantoprazole Sodium [Protonix] 40 mg GTUBE DAILY 07/12/17 [History] Potassium Chloride Elixir [Potassium Chloride] 10 meq GTUBE DAILY 07/12/17 [ History] Ondansetron HCl [Zofran] 4 mg PO Q8H PRN 08/13/17 [History] 3 Allergy/AdvReac Type Severity Reaction Status Date / Time aspirin [ASA] Allergy Rash Verified 07/12/17 01:20 Penicillins [PCN] Allergy Rash Verified 07/12/17 01:20 ROS unobtainable: due to mental status All Systems PM: A 10-system review of systems was performed and is negative for pertinent findings except as documented above in the HPI. - Constitutional Constitutional: anorexia, fever(s), lethargy, weight loss, no chills, no excessive sweating, no fatigue, no falls, no malaise, no night sweats, no weakness, no weight gain - EENT Eyes: no blurry vision, no change in vision, no decreased night vision, no diplopia, no discharge, no dry eye, no floaters, no irritation, no itchy eyes, no loss of peripheral vision, no loss of vision, no pain, no other visual disturbances Ears: no decreased hearing, no ear discharge, no ear pain, no tinnitus Nose, mouth and throat: no bleeding gums, no change in voice, no dental pain, no dry mouth, no dysphagia, no epistaxis, no facial pain, no hoarseness, no lip swelling, no mouth lesions, no mouth pain, no nasal congestion, no nasal discharge, no nasal obstruction, no nose pain, no odynophagia, no post-nasal drip, no sinus pain, no sinus pressure, no throat swelling, no tongue swelling - Breasts Breasts: no change in shape, no mass, no pain, no nipple discharge, no skin changes, no swelling, no other - Cardiovascular Cardiovascular ROS IM: no chest pain, no claudication, no diaphoresis, no dyspnea, no dyspnea on exertion, no edema, no irregular heart rhythm, no lightheadedness, no orthopnea, no palpitations, no paroxysmal nocturnal dyspnea , no syncope - Respiratory Respiratory: no cough, no dyspnea, no hemoptysis, no dyspnea on exertion, no wheezing, no snoring, no stridor, no pain on inspiration, no chest congestion, no excessive phlegm production, no change in phlegm color, no pain with cough - Gastrointestinal Gastrointestinal: no abdominal pain, no belching, no bloating, no change in bowel habits, no change in stool character, no coffee ground emesis, no constipation, no cramping, no diarrhea, no dyspepsia, no dysphagia, no early satiety, no heartburn, no hematemesis, no hematochezia, no loose stools, no melena, no nausea, no odynophagia, no tenesmus, no vomiting, no other - Genitourinary Genitourinary ROS male: no difficulty urinating, no dysuria, no flank pain, no genital lesions, no genital pain, no hematuria, no nocturia, no penile discharge , no post void dribbling, no scrotal swelling, no testicular mass, no testicular pain, no urinary frequency, no urinary hesitancy, no urinary incontinence, no urinary urgency - Musculoskeletal Musculoskeletal ROS IM: no arthralgias, no atrophy, no back pain, no deformity, no joint swelling, no limited range of motion, no muscle cramps, no muscle weakness, no myalgias, no neck pain, no numbness, no stiffness, no tingling, no other - Integumentary Integumentary IM: no erythema, no new lesions, no non-healing lesions, no pruritus, no rash, no skin ulcer, no sores, no unusual bruising, no jaundice - Neurological Neurological ROS: no abnormal gait, no abnormal hearing, no abnormal movements, no abnormal speech, no behavioral changes, no burning sensations, no confusion, no convulsions, no disequilibrium, no dizziness, no focal weakness, no frequent falls, no headache(s), no lack of coordination, no loss of vision, no memory loss, no numbness, no paresthesias, no radicular pain, no restless legs, no tingling, no tremor(s), no vertigo, no weakness, no other visual disturbances - Psychiatric Psychiatric: depression, no abnormal sleep pattern, no anhedonia, no anxiety, no auditory hallucinations, no behavioral changes, no change in appetite, no change in libido, no confusion, no difficulty concentrating, no hallucinations, no homicidal ideation, no hopelessness, no irritability, no memory loss, no mood swings, no panic attacks, no paranoia, no suicidal ideation, no visual hallucinations, no tactile - Endocrine Endocrine IM: no cold intolerance, no deeping of the voice, no excessive sweating, no fatigue, no flushing, no heat intolerance, no polyphagia, no polyuria - Hematologic/Lymphatic Hematologic/Lymphatic: no easy bleeding, no easy bruising, no lymphadenopathy - Allergic/Immunologic Allergic/Immunologic: no tongue swelling, no throat swelling, no itchy eyes, no seasonal rhinorrhea, no uticaria, no wheezing, no GI upset with certain foods, no lip swelling - Constitutional Vitals: Temp Pulse Resp BP Pulse Ox 100.0 F H 116 32 89/65 95 08/13/17 10:39 08/13/17 10:39 08/13/17 10:39 08/13/17 10:39 08/13/17 10:39 - Head Head exam: Present: atraumatic, normal inspection, normocephalic - Neck Neck exam general surgery: Present: supple, trachea midline. Absent: lymphadenopathy - Respiratory Respiratory exam: Present: CTAB. Absent: accessory muscle use, rales, rhonchi, wheezes - Cardiovascular Cardiovascular exam: Present: RRR, +S1, +S2. Absent: diastolic murmur, gallop, rubs, systolic murmur - GI/Abdominal GI/Abdominal exam: Present: normal bowel sounds, soft, no peritoneal signs. Absent: distended, tenderness Additional comments: Patient has a PEG tube insertion site looks a little irritated but - Neurological Exam Neurological exam: Present: altered, CN II-XII intact, oriented X3, no focal deficits. Absent: pronater drift, facial droop, speech deficit Additional comments: Patient is unresponsive Internal Med - H&P Results - Labs CBC & Chem 7: 08/13/17 06:08 08/13/17 06:08 Labs: The sodium was high but he was getting 0.9. Saturations at the [facility].
[2017-08-13] MEDS: *HR* HYDROcodone/Acet 5/325 mg TABLET GTUBE SCH (19:01)
[2017-08-15] MEDS ORDERED: Levofloxacin 500 MG/100 ML 500 MG/100 ML BAG IVPB SCH (09:00)
--- NOTE | 2017-09-09 13:34 | Discharge Summary ---
Date of Encounter: 09/09/17 Time of Encounter: 10:00 - Discharge Diagnosis (1) Healthcare-associated pneumonia Priority: Primary Status: Acute (2) Pneumonia Priority: Primary Status: Acute Qualifiers: Pneumonia type: due to unspecified organism Laterality: bilateral Lung location: lower lobe of lung Qualified Code(s): J18.9 - Pneumonia, unspecified organism (3) Dementia Priority: Secondary Status: Chronic Qualifiers: Dementia type: Alzheimer's disease Alzheimer's disease onset: late-onset Dementia behavioral disturbance: with behavioral disturbance Qualified Code(s) : G30.1 - Alzheimer's disease with late onset; F02.81 - Dementia in other diseases classified elsewhere with behavioral disturbance (4) CVA (cerebral vascular accident) Priority: Secondary Status: Chronic Qualifiers: CVA mechanism: occlusion Precerebral and cerebral artery: posterior cerebral artery Laterality of affected vessel: unspecified Qualified Code(s) : I63.539 - Cerebral infarction due to unspecified occlusion or stenosis of unspecified posterior cerebral artery (5) Hypertension Priority: Secondary Status: Chronic Qualifiers: Hypertension type: unspecified secondary hypertension Qualified Code(s): I15.9 - Secondary hypertension, unspecified; I15 - Secondary hypertension - Discharge Medications Home Medications: Polyethylene Glycol 3350 [MiraLAX] 17 gm PO BID 04/17/16 [History] Clopidogrel [Plavix] 75 mg GTUBE HS 07/12/17 [History] Escitalopram [Lexapro] 5 mg GTUBE DAILY 07/12/17 [History] Furosemide [Lasix] 40 mg GTUBE BID 07/12/17 [History] HYDROcodone/Acet 5/325 mg [[place] 5-325 mg] 1 tab GTUBE Q6H 07/12/17 [History] Magnesium Hydroxide [Milk of Magnesia] 30 ml GTUBE DAILY PRN 07/12/17 [History] Menthol [Biofreeze] 1 applic TP TID PRN 07/12/17 [History] Metoprolol [Lopressor] 100 mg GTUBE BID 07/12/17 [History] Mirtazapine [Remeron] 30 mg GTUBE DAILY 07/12/17 [History] Pantoprazole Sodium [Protonix] 40 mg GTUBE DAILY 07/12/17 [History] Potassium Chloride Elixir [Potassium Chloride] 10 meq GTUBE DAILY 07/12/17 [ History] Ondansetron HCl [Zofran] 4 mg PO Q8H PRN 08/13/17 [History] Allergies/Adverse Reactions: 3 Allergy/AdvReac Type Severity Reaction Status Date / Time aspirin [ASA] Allergy Rash Verified 07/12/17 01:20 Penicillins [PCN] Allergy Rash Verified 07/12/17 01:20 Date of admission: 08/13/17 07:20 Primary care physician: Sarai Gonzalez Discharging clinician: Jerald Cleary Anticipated date of discharge: 08/13/17 - Discharge Instructions Follow Up With: Sarai Gonzalez MD [Primary Care Provider] - - Diet and Activity Activity: other Diet: other Interval History: was sent from the [facility] to the emergency room for low oxygen sats. He was noted to possibly have bibasilar pneumonia. He also had severe hyper H uremia and acute on chronic kidney failure. He was extremely dry. Hospital course: Mr. Reeder is a 87 year old male Who apparently at 02 100 the following day of admission. I was not present nor did I pronounced him. - Time Spent with Patient Total time spent providing and/or coordinating discharge services: Less than 30 minutes - Constitutional Vitals: Temp Pulse Resp BP Pulse Ox 100.0 F H 116 32 89/65 95 08/13/17 10:39 08/13/17 10:39 08/13/17 10:39 08/13/17 10:39 08/13/17 10:39 - Head Head exam: Present: atraumatic, normal inspection, normocephalic - Respiratory Respiratory exam: Present: CTAB. Absent: accessory muscle use, rales, rhonchi, wheezes - Cardiovascular Cardiovascular exam: Present: RRR, +S1, +S2. Absent: diastolic murmur, gallop, rubs, systolic murmur - VTE Documentation of Mechanical Device: Graduated compression elastic hosiery
== END 2017-08-14 04:00 | disposition expired | DRG 139 ==
LOC: EMEROOGRE 04:26 → INPGRE 04:26
PROVIDERS: ADMIT Internal Medicine; ATTEND Internal Medicine